=== PATIENT | female | born 1950 | race Caucasian/White ===

== ENCOUNTER 2021-10-29 12:41 | Outpatient (REF) | payer MEDICARE, OTHER, SELFPAY ==
--- NOTE | ~2021-10-29 | MR_ITS ---
EXAMINATION: MR LUMBAR SPINE WITHOUT CONTRAST CLINICAL INFORMATION: Back pain. Peripheral neuropathy. COMPARISON: None TECHNIQUE: MRI of the lumbar spine was obtained using routine sequences without contrast. FINDINGS: VERTEBRAL BODIES AND PARASPINAL STRUCTURES: There is a moderate leftward curvature of the lumbar spine. Fatty marrow endplate changes and disc space narrowing most significant at the L2-L3 and at the L3-L4 levels where there is a mild retrosubluxation as well. No compression fractures identified. No marrow or soft tissue edema is seen. The paraspinal soft tissues appear normal. The imaged bony pelvis is unremarkable. The left kidney is atrophic and hydronephrotic with abnormal distention of the left ureteropelvic junction, which demonstrates heterogeneous signal on T2-weighted imaging, measuring approximately 5.2 x 4.6 cm in size. CONUS MEDULLARIS AND CAUDA EQUINA: Normal, terminating at the level of L1. No lower cord signal abnormality is seen. The cauda equina nerve roots appear normal. SPINAL LEVELS: T12-L1: Mild retrosubluxation and minimal disc bulge with a small right paracentral disc extrusion migrating inferiorly to the mid L1 level. No central canal stenosis. Mild facet arthropathy. Patent foramina. L1-L2: Mild facet arthrosis. No significant disc pathology. Patent central canal and foramina. L2-L3: Chronic degenerative endplate spurring and diffuse disc bulge with facet arthropathy resulting in mild central canal stenosis and moderate to severe right foraminal encroachment. Mild to moderate left foraminal narrowing. L3-L4: Significant degenerative endplate spurring and moderate loss of disc height with a retrosubluxation. Diffuse disc bulge and facet arthropathy with mild central canal stenosis and severe bilateral foraminal encroachment. L4-L5: Minimal anterolisthesis and generalized disc bulge with advanced facet arthropathy resulting in moderate to severe central canal stenosis and thecal sac distortion. Severe left foraminal narrowing with distortion of the exiting left L4 nerve root. Right foraminal broad-based disc bulge/protrusion impinges upon the extraforaminal right L4 nerve root. L5-S1: Mild anterolisthesis and unroofed disc and exuberant facet arthropathy. No central canal stenosis. Bony spurring impinges upon the left S1 nerve root in the narrowed left lateral recess. Moderate left foraminal encroachment due to unroofed bulging disc and osseous spurring with distortion of the extraforaminal left L5 nerve root due to endplate spurring. MR/MR lumbar spine wo con IMPRESSION: Extensive multilevel lumbar spondylosis and moderate leftward lumbar spinal curvature. Small right paracentral disc extrusion with caudal migration at the T12-L1 level. Severe spondylosis at the L2-L3 level with mild central canal stenosis and significant right foraminal encroachment. Significant degenerative disc disease at the L3-L4 level with mild central canal stenosis and severe bilateral foraminal narrowing. Mild retrosubluxation. Very mild anterolisthesis at the L4-L5 level with advanced facet arthropathy contributing to moderate to severe central canal stenosis and thecal sac distortion. Severe left foraminal narrowing and compression of the left L4 nerve root. Right foraminal disc protrusion impinges upon the right L4 nerve root. Mild anterolisthesis at L5-S1 with advanced facet arthropathy. Bony spurring impinges upon the left S1 nerve root in the lateral recess. Distortion of the extraforaminal left L5 nerve root due to lateralized endplate spurring. Chronic atrophic changes of the left kidney with dilatation of the collecting system and abnormal distention of the left ureteropelvic junction, which demonstrates heterogeneous isointense signal abnormality on the axial T2-weighted acquisition, otherwise not well assessed. The possibility of an underlying staghorn calculus or obstructing lesion cannot be ruled out. CT urogram of the abdomen without and with contrast is recommended in follow-up for further evaluation.
== END 2021-10-29 12:42 | disposition home or self-care (01) ==
LOC: HO.MRI 12:41
PROVIDERS: Visit Provider Psychiatry & Neurology Neurology
DX: M48.07 Spinal stenosis, lumbosacral region (principal)
CPT/HCPCS: 72148

== ENCOUNTER → 2021-12-14 15:12 | Outpatient (BNVA) | payer OTHER, MEDICARE, SELFPAY | PROVIDERS: PCP Internal Medicine; Visit Provider Nurse Practitioner Family | DX: Z13.89 Encounter for screening for other disorder (principal) ==

== ENCOUNTER → 2022-02-09 09:13 | Outpatient (BNVA) | payer MEDICARE, OTHER, SELFPAY | PROVIDERS: PCP Internal Medicine; Visit Provider Anesthesiology | DX: M47.819 Spondylosis without myelopathy or radiculopathy, site unspecified (principal); M54.16 Radiculopathy, lumbar region; M48.062 Spinal stenosis, lumbar region with neurogenic claudication; M53.9 Dorsopathy, unspecified; I73.9 Peripheral vascular disease, unspecified; M62.838 Other muscle spasm; M46.1 Sacroiliitis, not elsewhere classified; M53.3 Sacrococcygeal disorders, not elsewhere classified | CPT/HCPCS: 99212 ==

== ENCOUNTER 2022-03-08 06:16 | Outpatient (REF) | payer MEDICARE, OTHER, SELFPAY ==
--- NOTE | ~2022-03-08 | FL_ITS ---
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 Moy Tate. Fluoroscopy time: 0.6. Cumulative Dose: 39.0 mGy. DAP: 10.6 Gy-cm2. Images: 6. FINDINGS: There are spinal needles overlying the bilateral outer L3, L4, and L5 neural foramen. There is contrast seen in the respective nerve sheaths. Some early transforaminal epidural extension is suggested. No visible vascular communication. There are multilevel degenerative changes lumbar spine with disc narrowing and vertebral spurring and lumbar curvature. FL/FL guidance in treatment room IMPRESSION: Fluoroscopy for pain management procedures.
== END 2022-03-08 06:17 | disposition home or self-care (01) ==
LOC: HO.RADIR 06:16
PROVIDERS: Visit Provider Anesthesiology
DX: M47.819 Spondylosis without myelopathy or radiculopathy, site unspecified (principal); M54.16 Radiculopathy, lumbar region; M48.062 Spinal stenosis, lumbar region with neurogenic claudication; M53.9 Dorsopathy, unspecified; M62.838 Other muscle spasm; I73.9 Peripheral vascular disease, unspecified
CPT/HCPCS: 64493; 64494

== ENCOUNTER 2022-03-22 06:20 | Outpatient (REF) | payer MEDICARE, OTHER, SELFPAY ==
--- NOTE | ~2022-03-22 | FL_ITS ---
EXAMINATION: XR FL WITH IMAGES CLINICAL INFORMATION: Sacroiliitis. COMPARISON: None. TECHNIQUE: Fluoroscopy performed by Dr. Moy Tate. Fluoroscopy Time: 0.2 minutes. Cumulative Dose: 11.8 mGy. DAP: 3.23 Gy-cm2. Images: 2. FINDINGS: [place] and contrast seen overlying the inferior aspects of both sacroiliac joints. FL/FL guidance in treatment room IMPRESSION: Intraoperative fluoroscopy for pain management procedure.
== END 2022-03-22 06:21 | disposition home or self-care (01) ==
LOC: HO.RADIR 06:20
PROVIDERS: Visit Provider Anesthesiology
DX: M46.1 Sacroiliitis, not elsewhere classified (principal); M47.819 Spondylosis without myelopathy or radiculopathy, site unspecified; M48.062 Spinal stenosis, lumbar region with neurogenic claudication; M53.9 Dorsopathy, unspecified; I73.9 Peripheral vascular disease, unspecified; M53.3 Sacrococcygeal disorders, not elsewhere classified
CPT/HCPCS: 27096

== ENCOUNTER → 2022-03-24 08:53 | Outpatient (BNVA) | payer MEDICARE, OTHER, SELFPAY | PROVIDERS: PCP Internal Medicine; Visit Provider Anesthesiology | DX: M53.3 Sacrococcygeal disorders, not elsewhere classified (principal); M46.1 Sacroiliitis, not elsewhere classified; I73.9 Peripheral vascular disease, unspecified; M53.9 Dorsopathy, unspecified; M48.062 Spinal stenosis, lumbar region with neurogenic claudication; M54.16 Radiculopathy, lumbar region; M47.817 Spondylosis without myelopathy or radiculopathy, lumbosacral region | CPT/HCPCS: Q3014 ==

== ENCOUNTER → 2022-03-29 11:13 | Outpatient (BNVA) | payer MEDICARE, OTHER, SELFPAY | PROVIDERS: PCP Internal Medicine; Visit Provider Surgery Vascular Surgery | DX: I73.9 Peripheral vascular disease, unspecified (principal); I73.00 Raynaud's syndrome without gangrene; F17.200 Nicotine dependence, unspecified, uncomplicated; Z71.6 Tobacco abuse counseling | CPT/HCPCS: 99202 ==